=== PATIENT | female | born 1995 | race Caucasian/White ===

== ENCOUNTER 2019-06-30 16:15 | Emergency (ER) | payer OTHER ==
[~2019-06-30] VITALS: Ht 157.5 cm; Wt 60.3 kg
== END 2019-06-30 18:54 | disposition home or self-care (01) ==
LOC: ER 16:15
DX: B33.8 Other specified viral diseases (principal); B96.0 Mycoplasma pneumoniae [M. pneumoniae] as the cause of diseases classified elsewhere

== ENCOUNTER 2020-03-28 21:20 | Inpatient (IN) | payer OTHER ==
[~2020-03-28] VITALS: Ht 157.5 cm; Wt 2.3 kg
[2020-03-28] MEDS ORDERED: PRENATAL TABLE1 EAC1 PO (22:02)
[2020-03-31] MEDS ORDERED: IRON325 MG PO (08:13)
== END 2020-03-31 13:25 | disposition home or self-care (01) | DRG 807 ==
LOC: LDR 21:20 → OB/GYN 03-29 10:59
PROVIDERS: ADMIT Specialist; ATTEND Specialist
PROC: 4A1HXFZ Monitoring of Products of Conception, Cardiac Rhythm, External Approach (ICD-10-PCS; 2020-03-28)
PROC: 10E0XZZ Delivery of Products of Conception, External Approach (ICD-10-PCS; principal; 2020-03-29)
PROC: 0W8NXZZ Division of Female Perineum, External Approach (ICD-10-PCS; 2020-03-29)
DX: O60.14X0 Preterm labor third trimester with preterm delivery third trimester, not applicable or unspecified (principal); Z37.0 Single live birth; O42.013 Preterm premature rupture of membranes, onset of labor within 24 hours of rupture, third trimester; O99.02 Anemia complicating childbirth; D64.9 Anemia, unspecified; Z3A.33 33 weeks gestation of pregnancy; Z20.822 Contact with and (suspected) exposure to COVID-19

== ENCOUNTER 2022-06-01 12:46 | Outpatient (CLI) | payer OTHER ==
[~2022-06-01 12:46] MED LIST: IRON325 MG PO; PRENATAL TABLE1 EAC1 PO
== END 2022-06-01 14:58 | disposition home or self-care (01) ==
LOC: PRENATAL 12:46
PROVIDERS: ATTEND Obstetrics & Gynecology Maternal & Fetal Medicine
DX: O36.80X0 Pregnancy with inconclusive fetal viability, not applicable or unspecified (principal); O09.219 Supervision of pregnancy with history of pre-term labor, unspecified trimester; Z3A.14 14 weeks gestation of pregnancy

== ENCOUNTER 2022-07-06 08:13 | Outpatient (CLI) | payer OTHER | END 2022-07-06 09:03 | disposition home or self-care (01) | LOC: PRENATAL 08:13 | PROVIDERS: ATTEND Obstetrics & Gynecology Maternal & Fetal Medicine | DX: O35.3XX0 Maternal care for (suspected) damage to fetus from viral disease in mother, not applicable or unspecified (principal); O09.219 Supervision of pregnancy with history of pre-term labor, unspecified trimester; Z3A.19 19 weeks gestation of pregnancy ==

== ENCOUNTER 2022-09-03 15:20 | Emergency (ER) | payer OTHER ==
[~2022-09-03] VITALS: Ht 157.5 cm; Wt 70.8 kg
== END 2022-09-03 19:30 | disposition home or self-care (01) ==
LOC: ER 15:20
DX: O23.33 Infections of other parts of urinary tract in pregnancy, third trimester (principal); Z3A.29 29 weeks gestation of pregnancy

== ENCOUNTER 2022-10-03 09:12 | Outpatient (CLI) | payer OTHER | END 2022-10-03 11:34 | disposition home or self-care (01) | LOC: PRENATAL 09:12 | PROVIDERS: ATTEND Obstetrics & Gynecology Maternal & Fetal Medicine | DX: O26.849 Uterine size-date discrepancy, unspecified trimester (principal); O36.8199 Decreased fetal movements, unspecified trimester, other fetus; O09.219 Supervision of pregnancy with history of pre-term labor, unspecified trimester; Z3A.32 32 weeks gestation of pregnancy ==

== ENCOUNTER 2022-10-19 02:52 | Inpatient (IN) | payer OTHER ==
[~2022-10-19] VITALS: Ht 157.5 cm; Wt 79.4 kg
== END 2022-10-21 18:17 | disposition home or self-care (01) | DRG 807 ==
LOC: OB/GYN 02:52 → LDR 02:52 → OB/GYN 06:02
PROVIDERS: ADMIT Specialist; ATTEND Specialist
PROC: 10E0XZZ Delivery of Products of Conception, External Approach (ICD-10-PCS; principal; 2022-10-19)
PROC: 0HQ9XZZ Repair Perineum Skin, External Approach (ICD-10-PCS; 2022-10-19)
PROC: 4A1HXCZ Monitoring of Products of Conception, Cardiac Rate, External Approach (ICD-10-PCS; 2022-10-19)
DX: O70.0 First degree perineal laceration during delivery (principal); Z37.0 Single live birth; Z3A.34 34 weeks gestation of pregnancy; Z20.822 Contact with and (suspected) exposure to COVID-19